=== PATIENT | male | born 1970 | race Caucasian/White ===

== ENCOUNTER 2016-07-13 05:27 | Emergency (ER) | payer SELFPAY ==
[~2016-07-13] VITALS: Ht 188 cm; Wt 79.5 kg
[2016-07-13 05:31] VITALS: BP 130/78; PULSE 90; PULSE 92; RESP 16; O2SAT 96
[2016-07-13] MEDS ORDERED: Albuterol-Ipratropium 3 mL Inhalation Solution ONE (05:33)
[2016-07-13] MEDS ORDERED: Albuterol 2.5 mg/3 mL Inhalation Solution NEB ONE ×2 (05:33→05:35)
[2016-07-13] MEDS ORDERED: Albuterol-Ipratropium 3 mL Inhalation Solution NEB ONE (05:35)
[2016-07-13 05:41] VITALS: PULSE 73; RESP 15; O2SAT 96
--- NOTE | 2016-07-13 06:23 | ED.REPORT ---
HPI-Dyspnea / Wheezing Date of Service Jul 13, 2016 ED Provider: Maurilio Lynn MD The patient is a 45 year old male with history of asthma who presents to the emergency department complaining of shortness of breath that began 3 days ago. His symptoms have worsened since onset. He also complains of chest pain, cough, congestion, itchy eyes, runny nose, and wheezing. He has not had an inhaler for the last year due to medical insurance issues. He denies fever, chills, vomiting or diarrhea. Nursing Notes Stated Complaint: DIFFICULTY BREATHING Chief Complaint: Respiratory Distress Nursing Notes Reviewed: Yes Allergies: Coded Allergies: Penicillins (Verified Allergy, Severe, Rash,Itching,, 07/13/16) Scheduled Albuterol HFA (Proair HFA) 8.5 Gm Hfa.aer.ad 2 PUFFS INHALATION Q4H Prednisone (PredniSONE) 20 Mg Tablet 20 MG PO DAILY Prednisone (PredniSONE) 20 Mg Tablet 20 MG PO DAILY General Time Seen by MD: 05:34 Chief Complaint Shortness of breath Hx Obtained From: Patient Arrived By: Walk-in Sudden in Onset?: No Onset Occurred: 3 days ago Symptom Duration: Since onset Quality: Painful Severity: Current: Mild Severity: Maximum: Mild Recent Healthcare: No recent doctor visit, No recent hospitalization Similar Sx Previous: Yes Past Medical History Past Medical History Reports: Asthma Past Surgical History none reported Family History Noncontributory Smoking History Unknown if Ever Smoker Social History Alcohol Use: "Social" Drug Use: In recovery, Meth Other Social History: Good social support, Local resident Ambulatory Status Independent Review of Systems Constitutional: Denies: Chills, Fever Ears / Nose / Throat: Reports: Nasal congestion Respiratory: Reports: Non-productive cough, Shortness of breath, Wheezing Cardiovascular: Reports: Chest pain Allergy / Immune: Reports: Itching (eyes), Rhinorrhea Complete sys rev & neg: except as marked. GI: Denies: Diarrhea, Nausea, Vomiting Physical Exam Initial Vital Signs Vital Signs (First) Date Time Temp Pulse Resp B/P Pulse Ox O2 Delivery O2 Flow Rate FiO2 07/13/16 05:31 36.5 90 16 130/78 96 Room Air Initial VS: Reviewed Head / Eyes: Atraumatic, Normocephalic, PERRL ENT: Mucous membranes moist, Conjunctiva normal, No scleral icterus Abdomen / GI: Soft, Non-tender, No guarding, No rebound, No distention Lymphatic: No lymphadenopathy Extremities: Vascular intact, Neuro intact, No swelling, No tenderness Skin: Warm, Dry, No cyanosis Neurologic: Alert, Oriented, Nonfocal Psychiatric: Mood/affect normal, Behavior normal, Normal thought content General/Constitutional: Awake, Alert, No acute distress, Cooperative Neck: Atraumatic, Supple, No meningismus, Full range of motion, No swelling, Non-tender, No masses, No JVD Respiratory / Chest: Atraumatic, Breath sounds NL, Breath sounds = bilat, No respiratory distress, No rales, No rhonchi, No wheezing, No retractions, No stridor Cardiovascular: Heart rate NL, Regular rhythm, Heart sounds NL, No gallop, No murmurs, No rubs, Peripheral circulation NL Interpretation & Diagnostics Lab Results Interpretation Result Diagram: 07/13/16 0608 07/13/16 0608 Test 07/13/16 06:08 White Blood Count 5.3th/mm3 (3.8-10.1) Red Blood Count 5.15mil/mm3 (4.40-5.80) Hemoglobin 15.5g/dL (13.8-17.2) Hematocrit 46.3% (41.0-50.0) Mean Corpuscular Volume 89.9fL (81-100) Mean Corpuscular Hemoglobin 30.1pg (27.0-35.0) Mean Corpuscular Hemoglobin Concent 33.5% (32.0-37.0) Red Cell Distribution Width 13.2% (12.3-15.4) Platelet Count 206bil/L (150-400) Neutrophils (%) (Auto) 30.4% (40-74) Lymphocytes (%) (Auto) 49.6% (14-46) Monocytes (%) (Auto) 9.7% (4-12) Eosinophils (%) (Auto) 7.3% (0-5) Basophils (%) (Auto) 2.8% (0-3) Sodium Level 140mEq/L (134-144) Potassium Level 4.1mEq/L (3.5-5.2) Chloride Level 101mEq/L (97-108) Carbon Dioxide Level 23mmol/L (18-29) Blood Urea Nitrogen 17mg/dL (6-24) Creatinine 0.85mg/dL (0.76-1.27) Estimat Glomerular Filtration Rate 104mL/min (>59) Glucose Level 113mg/dL (60-99) Calcium Level 9.6mg/dL (8.5-10.1) Magnesium Level 2.0mg/dL (1.6-2.6) Total Bilirubin 0.8mg/dL (0.0-1.2) Aspartate Amino Transf (AST/SGOT) 23U/L (0-50) Alanine Aminotransferase (ALT/SGPT) 22U/L (0-44) Alkaline Phosphatase 72U/L (25-150) Troponin T < 0.010ug/L (0.0-0.011) Pro-B-Type Natriuretic Peptide 5.60pg/mL (0-121) Total Protein 7.3g/dL (6.4-8.4) Albumin 4.4g/dL (3.4-5.0) Hold Regalado Top Tube Received (Received) ECG Interpretation ECG Interpretation: Sinus rhythm with a rate of 69 Time: 05:40 Interpreted by: ED physician X-Ray Chest Interpretation Chest Xray Interpretation: No acute findings View: Portable, 1 view Interpretation / Wet Read by: Wet read ED physician Re-Eval/Medical Decision Med Decision/Clinical Course 45-year-old male long history of asthma presenting with asthma exacerbation. Patient reports shortness of breath for the last 3-5 days. He is out of his medications and his inhaler as he ran out of insurance. On arrival he was evaluated by another ER doctor at end of their shift who noted that he was in respiratory distress. He was given 2 albuterol nebulizers and felt much better. At time I evaluated him he had no respiratory distress and his lungs were clear. Oxygen was normal. Vital signs stable. Chest x-ray clear. Patient will be treated for asthma exacerbation. He was given 1 dose of IV steroids here. He was discharged with a prepack for 4 days of steroids and a prescription for an additional 2 days steroids. He was given an albuterol inhaler here. He was sent home with a prescription for an additional one. Advised to follow-up with primary doctor return precautions given. Source of Hx: Old records Re-Evaluation/Progress : Time of Eval: 06:34 Re-Evaluation/Progress Note: Symptoms are improved with treatment. Counseled Regarding: Diagnosis, Lab results, Need for follow-up, When/why to return to ED Discharge & Departure Impression: Primary Impression: Asthma exacerbation Disposition: Home Discharge Condition All VS Reviewed: Yes Condition: Stable Patient Instructions: Asthma (ED) Additional Instructions: Thank you for entrusting us with your care today. Use the steroids as prescribed. Use the inhaler as needed for your breathing. Followup with a regular doctor for further management of this. We have given you a referral to the residency clinic and [facility]. Seek care for any new or concerning symptoms. Referrals: Rohith Toledo MD (PCP) [facility] Mayco Attestation Portions of this note were transcribed by Valentina Benz. I, Dr. Lynn personally performed the history, physical exam and medical decision-making; I reviewed and confirmed the accuracy of the information in the transcribed note. Signed by: Mayco Cartagena, 07/13/2016 at 0720. copies to: Rohith Toledo MD; [facility]; [facility] Maurilio Lynn MD Jul 13, 2016 06:23 Valentina Benz Jul 13, 2016 06:31
[2016-07-13 06:30] LABS: BASOPHILS % (AUTO) 2.8 % (0-3); EOSINOPHILS % (AUTO) 7.3 % (0-5); MONOCYTES % (AUTO) 9.7 % (4-12); Mean Corpuscular Hemoglobin 30.1 pg (27.0-35.0); Mean Corpuscular Volume 89.9 fL (81-100); NEUTROPHILS % (AUTO) 30.4 % (40-74); Platelet Count 206 bil/L (150-400)
[2016-07-13] MEDS ORDERED: MethylprednisoLONE Sodium Succinate 62.5 mg/mL 2 mL Inj IVPUSH ONE (06:40)
[2016-07-13] MEDS ORDERED: _Albuterol-HFA 60 Puff Inhaler INHALATION PRN (06:40)
[2016-07-13] MEDS ORDERED: ALBU8.5H2 INHALATION (06:41)
[2016-07-13] MEDS ORDERED: PRE20 PO (06:41)
[2016-07-13 07:14] LABS: TROPONIN T < 0.010 ug/L (0.0-0.011)
[2016-07-13] MEDS ORDERED: _PredniSONE 10 mg Tablet PO SCH (08:00)
[2016-07-13 08:19] VITALS: BP 122/78; PULSE 88; RESP 16; O2SAT 100
--- NOTE | 2016-07-13 09:32 | DRSVH ---
PROCEDURE: X-RAY CHEST ONE VIEW, PORTABLE ([id number]) INDICATIONS: SHORT OF BREATH TECHNIQUE: One view of the chest was acquired. COMPARISON: [facility], CR, CHEST 2VW, 03/27/2014, 12:35. FINDINGS: Surgical changes and devices: None. Lungs and pleura: No pleural effusions or pneumothorax. Lungs are clear. Mediastinum: Mediastinal contours appear normal. Heart size is normal. Bones and chest wall: No suspicious bony lesions. Overlying soft tissues appear unremarkable. IMPRESSION: No acute cardiopulmonary disease. Dictated by: Abhinav Lo [facility] Interpreted: Dhruv Pacheco MD on 07/13/2016 at 9:32 Transcribed by: SHAAN on 07/13/2016 at 9:32 Approved by: Dhruv Pacheco M.D. on 07/13/2016 at 11:09
== END 2016-07-13 07:19 | disposition home or self-care (01) ==
LOC: SED 05:27
DX: J45.901 Unspecified asthma with (acute) exacerbation (principal); R07.9 Chest pain, unspecified; R09.81 Nasal congestion; L29.9 Pruritus, unspecified; Z88.0 Allergy status to penicillin
CPT/HCPCS: 36415; 71010; 80053; 83735; 83880; 84484; 85025; 93005; 94644; 96374; 99285; J2930; J7613; J7620